=== PATIENT | male | born 1955 | race African-American/Black ===

== ENCOUNTER 2018-07-16 04:04 | Inpatient (IN) | payer MEDICARE, MEDICAID ==
[2018-07-16] VITALS (9 sets, daily range): BP systolic 116–174; BP diastolic 62–100
[~2018-07-16] VITALS: Ht 177.8 cm; Wt 132.0 kg
[2018-07-16] MEDS ORDERED: ALLO100T PO (05:33)
[2018-07-16] MEDS ORDERED: COLC0.6C3 PO (05:33)
[2018-07-16] MEDS ORDERED: LISI40TA4 PO (05:33)
[2018-07-16] MEDS ORDERED: FURO40TA5 PO (05:33)
[2018-07-16] MEDS ORDERED: THE3 PO (05:34)
[2018-07-16] MEDS ORDERED: AMLO10TA4 PO (05:34)
[2018-07-16] MEDS ORDERED: MONT10TA21 PO (05:34)
[2018-07-16] MEDS ORDERED: TEMAZEPAM 15MG CAPSULE PO PRN (06:30)
[2018-07-16] MEDS ORDERED: MORPHINE SULFATE 4 MG/ML CPJ (NOT FOR IM USE) IV PRN (06:30)
[2018-07-16] MEDS ORDERED: HYDRALAZINE 20MG/ML VIAL IV PRN (06:30)
[2018-07-16] MEDS ORDERED: HYDROCODONE/ACETAMINOPHEN 5/325MG TABLET PO PRN (06:30)
[2018-07-16] MEDS ORDERED: CLONIDINE 0.1MG TABLET PO PRN (06:30)
[2018-07-16] MEDS ORDERED: ACETAMINOPHEN 325MG TABLET PO PRN ×2 (06:30→13:45)
[2018-07-16 08:12] LABS: HEMATOCRIT. 38.6 % (42.0-52.0); HEMOGLOBIN. 12.5 g/dL (14.0-18.0); MEAN CORPUSCULAR HEMOGLOBIN 26.3 pg (28.0-32.0); MEAN CORPUSCULAR VOLUME 81.1 fL (80.0-94.0); MEAN PLATELET VOLUME 7.6 fl (7.4-10.4); PLATELET 506 x1000/uL (130-400); RED BLOOD CELL COUNT 4.76 mill/uL (4.7-6.1); RED CELL DISTRIBUTION WIDTH 15.1 % (11.6-14.6)
[2018-07-16 08:22] LABS: PARTIAL THROMBOPLASTIN TIME 27.4 sec (23.4-31.0); PROTHROMBIN TIME 10.7 sec (9.6-11.0)
[2018-07-16 08:26] LABS: CHLORIDE 103 mEq/L (98-107)
[2018-07-16 08:33] LABS: PHOSPHORUS 3.6 mg/dL (2.5-4.9)
[2018-07-16 08:34] LABS: CREATINE KINASE 234 IU/L (39-308)
[2018-07-16 08:37] LABS: CREATINE KINASE MB FRACTION 3.3 ng/mL (0.5-3.6)
[2018-07-16] MEDS: THEOPHYLLINE ANHYDROUS 80 MG/15 ML 120ML PO SCH ×3 (08:52→20:23)
[2018-07-16] MEDS: AMLODIPINE 10MG TABLET PO SCH ×2 (08:53→09:00)
[2018-07-16] MEDS: ALLOPURINOL 100 MG TABLET PO SCH ×2 (08:53→09:00)
[2018-07-16] MEDS: FUROSEMIDE 40MG TABLET PO SCH ×2 (08:53→09:00)
[2018-07-16 10:11] LABS: PLATELET ESTIMATE INCREASED
[2018-07-16] MEDS ORDERED: NICARDIPINE 100MCG/ML 10ML VIAL (CATH LAB) IV ONE (10:17)
[2018-07-16] MEDS ORDERED: HEPARIN SODIUM 1,000 UNIT/1ML VIAL IV ONE (10:17)
[2018-07-16] MEDS ORDERED: NITROGLYCERIN 50MCG/ML 10ML VIAL (CATH LAB) IV ONE (10:17)
[2018-07-16] MEDS: IPRATROPIUM/ALBUTEROL 0.5-3(2.5)MG/3ML NEB HHN SCH ×3 (11:47→21:39)
[2018-07-16] MEDS: SODIUM CHL 0.45% + KCL 20MEQ/L 1,000 ML IV SCH ×2 (11:55→23:07)
[2018-07-16] MEDS ORDERED: LIDOCAINE HCL 1% 20ML VIAL (Pyxis) INJ ONE (12:49)
[2018-07-16] MEDS ORDERED: IODIXANOL 320MG/ML 100 ML BOTTLE IV ONE ×2 (12:51→13:26)
[2018-07-16] MEDS ORDERED: FENTANYL CITRATE/PF 50MCG/ML 2ML VIAL ONE (13:05)
[2018-07-16] MEDS ORDERED: MIDAZOLAM HCL 2 MG/2 ML VIAL ONE (13:05)
[2018-07-16] MEDS ORDERED: ATROPINE SULFATE 1MG/10ML SYR IV PRN (13:45)
[2018-07-16] MEDS ORDERED: ONDANSETRON HCL 4MG/2ML INJ IV PRN (13:45)
[2018-07-16 15:22] LABS: CLARITY URINE CLEAR (CLEAR); COLOR URINE YELLOW (YELLOW); KETONES URINE NEGATIVE (NEGATIVE); LEUKOCYTE ESTERASE URINE NEGATIVE (NEGATIVE); NITRITE URINE NEGATIVE (NEGATIVE); OCCULT BLOOD URINE NEGATIVE (NEGATIVE); PH URINE 6.5 (4.5-8.0); PROTEIN URINE NEGATIVE (NEGATIVE); SPECIFIC GRAVITY URINE 1.013 (1.005-1.030); UROBILINOGEN URINE 0.2 E.U./dL (0.2-1.0)
[2018-07-16] MEDS: CEFTRIAXONE 1 G PREMIX 50 ML IV SCH (17:23)
[2018-07-16] MEDS: MONTELUKAST SODIUM 10MG TABLET PO SCH (17:23)
[2018-07-16] MEDS: AZITHROMYCIN 500 MG in DEXT 5% WATER 250 ML IV SCH (17:24)
[2018-07-17] VITALS (13 sets, daily range): BP systolic 135–197; BP diastolic 72–116
[2018-07-17] MEDS: IPRATROPIUM/ALBUTEROL 0.5-3(2.5)MG/3ML NEB HHN SCH ×5 (01:05→21:15)
[2018-07-17] MEDS: FUROSEMIDE 40MG TABLET PO SCH (08:35)
[2018-07-17] MEDS: ALLOPURINOL 100 MG TABLET PO SCH (08:35)
[2018-07-17] MEDS: THEOPHYLLINE ANHYDROUS 80 MG/15 ML 120ML PO SCH ×2 (08:35→20:55)
[2018-07-17] MEDS: AMLODIPINE 10MG TABLET PO SCH (08:35)
[2018-07-17 10:33] LABS: BASOPHILS % 0.2 % (0.0-2.0); EOSINOPHILS % 6.9 % (0.0-5.0); HEMATOCRIT. 35.2 % (42.0-52.0); HEMOGLOBIN. 11.4 g/dL (14.0-18.0); LYMPHOCYTES % 9.5 % (20.0-50.0); MEAN CORPUSCULAR HEMOGLOBIN 26.5 pg (28.0-32.0); MEAN CORPUSCULAR VOLUME 81.5 fL (80.0-94.0); MEAN PLATELET VOLUME 7.6 fl (7.4-10.4); MONOCYTES % 5.2 % (2.0-8.0); NEUTROPHILS % 78.2 % (40.0-76.0); PLATELET 429 x1000/uL (130-400); RED BLOOD CELL COUNT 4.32 mill/uL (4.7-6.1); RED CELL DISTRIBUTION WIDTH 15.6 % (11.6-14.6)
[2018-07-17 10:46] LABS: CHLORIDE 104 mEq/L (98-107)
[2018-07-17] MEDS: LISINOPRIL 40MG TABLET PO SCH (11:07)
[2018-07-17] MEDS: CEFTRIAXONE 1 G PREMIX 50 ML IV SCH (13:26)
[2018-07-17] MEDS: AZITHROMYCIN 500 MG in DEXT 5% WATER 250 ML IV SCH ×2 (14:20→14:28)
[2018-07-17] MEDS: MONTELUKAST SODIUM 10MG TABLET PO SCH (16:06)
[2018-07-17] MEDS: POTASSIUM CHLORIDE 20MEQ TABLET SR PO SCH (17:24)
[2018-07-17] MEDS: AZITHROMYCIN 500 MG TABLET PO SCH (17:24)
[2018-07-18] VITALS (11 sets, daily range): BP systolic 98–169; BP diastolic 58–96
[2018-07-18] MEDS: IPRATROPIUM/ALBUTEROL 0.5-3(2.5)MG/3ML NEB HHN SCH ×6 (00:51→21:30)
[2018-07-18 07:07] LABS: HEMATOCRIT 34.8 % (42.0-52.0); HEMOGLOBIN 11.2 g/dL (14.0-18.0); MEAN CORPUSCULAR HEMOGLOBIN 26.5 pg (28.0-32.0); MEAN CORPUSCULAR VOLUME 82.1 fL (80.0-94.0); PLATELET 372 x1000/uL (130-400); RED BLOOD CELL COUNT 4.24 mill/uL (4.7-6.1); RED CELL DISTRIBUTION WIDTH 15.3 % (11.6-14.6)
[2018-07-18 07:23] LABS: CHLORIDE 103 mEq/L (98-107)
[2018-07-18 07:35] LABS: LDL CHOLESTEROL 73 mg/dL (5-100)
[2018-07-18 07:36] LABS: HDL CHOLESTEROL 50 mg/dL (40-59)
[2018-07-18] MEDS: LISINOPRIL 40MG TABLET PO SCH (09:16)
[2018-07-18] MEDS: AMLODIPINE 10MG TABLET PO SCH (09:16)
[2018-07-18] MEDS: ALLOPURINOL 100 MG TABLET PO SCH (09:16)
[2018-07-18] MEDS: FUROSEMIDE 40MG TABLET PO SCH (09:16)
[2018-07-18] MEDS: POTASSIUM CHLORIDE 20MEQ TABLET SR PO SCH ×2 (09:16→17:51)
[2018-07-18] MEDS: THEOPHYLLINE ANHYDROUS 80 MG/15 ML 120ML PO SCH ×2 (09:17→20:35)
[2018-07-18] MEDS: CEFTRIAXONE 1 G PREMIX 50 ML IV SCH (14:47)
[2018-07-18] MEDS: AZITHROMYCIN 500 MG TABLET PO SCH (17:51)
[2018-07-18] MEDS: MONTELUKAST SODIUM 10MG TABLET PO SCH (17:51)
[2018-07-19 00:06] VITALS: BP 112/43
[2018-07-19] MEDS: IPRATROPIUM/ALBUTEROL 0.5-3(2.5)MG/3ML NEB HHN SCH ×3 (01:28→07:57)
[2018-07-19 02:00] VITALS: BP 133/82
[2018-07-19 04:00] VITALS: BP 119/60
[2018-07-19 06:00] VITALS: BP 146/82
[2018-07-19] MEDS: THEOPHYLLINE ANHYDROUS 80 MG/15 ML 120ML PO SCH (07:56)
[2018-07-19 08:09] VITALS: BP 159/99
[2018-07-19] MEDS: FUROSEMIDE 40MG TABLET PO SCH (08:21)
[2018-07-19] MEDS: LISINOPRIL 40MG TABLET PO SCH (08:21)
[2018-07-19] MEDS: AMLODIPINE 10MG TABLET PO SCH (08:21)
[2018-07-19] MEDS: ALLOPURINOL 100 MG TABLET PO SCH (08:21)
[2018-07-19] MEDS: POTASSIUM CHLORIDE 20MEQ TABLET SR PO SCH (08:21)
== END 2018-07-19 10:39 | disposition left against medical advice (07) | DRG 871 ==
LOC: 3WST 04:04
PROVIDERS: ADMIT Family Medicine Adult Medicine; ATTEND Internal Medicine Nephrology
PROC: 4A023N7 Measurement of Cardiac Sampling and Pressure, Left Heart, Percutaneous Approach (ICD-10-PCS; principal; 2018-07-16)
PROC: B2111ZZ Fluoroscopy of Multiple Coronary Arteries using Low Osmolar Contrast (ICD-10-PCS; 2018-07-16)
PROC: B2151ZZ Fluoroscopy of Left Heart using Low Osmolar Contrast (ICD-10-PCS; 2018-07-16)
DX: A41.9 Sepsis, unspecified organism (principal); I21.4 Non-ST elevation (NSTEMI) myocardial infarction; J18.9 Pneumonia, unspecified organism; E44.1 Mild protein-calorie malnutrition; Z68.41 Body mass index [BMI] 40.0-44.9, adult; E87.6 Hypokalemia; F20.9 Schizophrenia, unspecified; I10 Essential (primary) hypertension; I20.9 Angina pectoris, unspecified; J45.909 Unspecified asthma, uncomplicated; E66.09 Other obesity due to excess calories; Z59.0 Homelessness
CPT/HCPCS: 36415; 71045; 80048; 80061; 82550; 82553; 83036; 83735; 83880; 84100; 84484; 85027; 93005; 93306; 93458; 94640; C1769; C1887; C1893; J0456; J0696; J1644; J2250; J3010; J3480; J3490; J7050; J7060; J7620; Q9967